=== PATIENT | female | born 1960 | race Caucasian/White ===

== ENCOUNTER 2020-07-31 11:46 | Emergency (ER) | payer SELFPAY ==
[2020-07-31 13:48] LABS: Absolute Lymphocytes (CBC) 0.5 K/uL (0.7-4.9); Basophils % 0.2 % (0-1.3); Hematocrit 43.8 % (36.0-45.0); Lymphocytes % 9.3 % (15.3-44.8); RBC Red Blood Cell Count 4.39 M/uL (3.86-4.86)
[2020-07-31] MEDS ORDERED: NA CHLORIDE 0.9% 1,000 ML ONE (13:51)
[2020-07-31 13:59] LABS: ALT/SGPT 52 U/L (12-78); AST/SGOT 29 U/L (15-37); Albumin 4.1 g/dL (3.4-5.0); Alkaline Phosphatase 64 U/L (45-117); BUN Blood Urea Nitrogen 21 mg/dL (7-18); Bicarbonate 20 mmol/L (21-32); Bilirubin Direct 0.5 mg/dL (0-0.2); Bilirubin Total 1.1 mg/dL (0.2-1.0); Glucose Level 131 mg/dL (74-106); Lipase 359 U/L (73-393); Potassium 3.5 mmol/L (3.5-5.1); Protein, Total 8.6 g/dL (6.4-8.2); Sodium Level 130 mmol/L (136-145)
[2020-07-31 15:03] LABS: SARS-COV-2 RT PCR NEGATIVE (NEGATIVE)
[2020-07-31] MEDS ORDERED: ONDANSETRON 4 MG/2 ML VIAL ONE (15:42)
--- NOTE | 2020-07-31 17:23 | EDPHYS ---
Physician Documentation [facility] Name: Susanne Vargas Age: 59 yrs Sex: Female : 1960 Arrival Date: 07/31/2020 Time: 11:51 Bed 17 Private MD: Lucila Arellano K ED Physician Elgin Agustin HPI: 07/31 13:15 This 59 yrs old Female presents to ER via Wheelchair with complaints of pm1 Vomiting, Nausea. 13:15 The patient presents to the emergency department with nausea, vomiting. Onset: The pm1 symptoms/episode began/occurred 8 day(s) ago. Possible causes: unknown. The symptoms are aggravated by nothing. The symptoms are alleviated by nothing. Associated signs and symptoms: Pertinent positives: Occasional abdominal cramping, Pertinent negatives: constipation, dysuria, fever. Severity of symptoms: in the emergency department the symptoms are unchanged Pain is currently a 0 / 10. The patient has been recently seen by a physician: the patient's primary care provider, Dr. Arellano. Patient saw her PCP for the same complaints and Dr. Arellano stopped her hyperlipidemia medications due to possible cause for nausea and vomiting. Historical: - Allergies: 12:21 No Known Allergies; ll1 - PMHx: 12:21 Hypertension; High Cholesterol; no meds now; ll1 - PSHx: 12:21 None; ll1 - Immunization history:: Flu vaccine is up to date. - Social history:: Smoking status: Patient denies any tobacco usage or history of. ROS: 13:15 Cardiovascular: Negative for chest pain, palpitations, and edema, Respiratory: Negative pm1 for shortness of breath, cough, wheezing, and pleuritic chest pain. 13:15 Back: Negative for injury and pain, : Negative for injury, bleeding, discharge, and swelling, MS/Extremity: Negative for injury and deformity, Skin: Negative for injury, rash, and discoloration, Neuro: Negative for headache, weakness, numbness, tingling, and seizure. 13:15 Constitutional: Positive for poor PO intake, Negative for body aches, chills, fever. 13:15 Abdomen/GI: Positive for nausea and vomiting, abdominal cramps, Negative for diarrhea, constipation. Exam: 13:15 Constitutional: This is a well developed, well nourished patient who is awake, alert, pm1 and in no acute distress. Head/Face: Normocephalic, atraumatic. 13:15 Back: No spinal tenderness. No costovertebral tenderness. Full range of motion. Skin: Warm, dry with normal turgor. Normal color with no rashes, no lesions, and no evidence of cellulitis. MS/ Extremity: Pulses equal, no cyanosis. Neurovascular intact. Full, normal range of motion. 13:15 Cardiovascular: Rate: tachycardic, actual rate is 113 bpm, Rhythm: regular, Pulses: no pulse deficits are appreciated, Heart sounds: normal. 13:15 Respiratory: Exam negative for acute changes, the patient does not display signs of respiratory distress, Respirations: normal, Breath sounds: are clear throughout. 13:15 Abdomen/GI: Inspection: abdomen appears normal, Bowel sounds: normal, Palpation: abdomen is soft and non-tender, in all quadrants. 13:15 Neuro: Orientation: is normal, Mentation: is normal, Motor: is normal, moves all fours, Sensation: is normal, no obvious gross deficits. Vital Signs: 12:17 BP 148 / 116; Pulse 130; Resp 18; Temp 97.7; Pulse Ox 100% ; Weight 45.36 kg; Height 5 ll1 ft. 3 in. (160.02 cm); Pain 1/10; 13:03 BP 163 / 122; Pulse 113; Resp 20; Temp 97.6(TE); Pulse Ox 100% on R/A; Pain 4/10; bw 13:35 BP 148 / 113 Supine; Pulse 106; mt 13:35 BP 154 / 126 Sitting; Pulse 120; mt 13:35 BP 138 / 114 Standing; Pulse 132; mt 14:03 BP 167 / 119; Pulse 102; Resp 20; Pulse Ox 100% on R/A; bw 16:25 BP 148 / 129; Pulse 90; Resp 20; Pulse Ox 100% on R/A; bw 17:22 BP 163 / 108; Pulse 95; Resp 18; Pulse Ox 100% on R/A; bw 12:17 Body Mass Index 17.71 (45.36 kg, 160.02 cm) ll1 MDM: 12:54 Patient medically screened. rn 15:37 Data reviewed: vital signs. Data interpreted: Pulse oximetry: on room air is 100 %. pm1 Interpretation: normal. 17:22 Counseling: I had a detailed discussion with the patient and/or guardian regarding: the pm1 historical points, exam findings, and any diagnostic results supporting the discharge/admit diagnosis, lab results, the need for outpatient follow up, to return to the emergency department if symptoms worsen or persist or if there are any questions or concerns that arise at home. 17:22 ED course: Patient able to eat in the ER without any vomiting. Therefore will discharge pm1 the patient home for follow up with PCP. 07/31 13:15 Order name: Basic Metabolic Panel; Complete Time: 15:02 pm1 07/31 13:15 Order name: CBC with Diff; Complete Time: 15:02 pm1 07/31 13:15 Order name: Hepatic Function; Complete Time: 15:02 pm1 07/31 13:15 Order name: Lipase; Complete Time: 15:02 pm1 07/31 13:15 Order name: IV Saline Lock; Complete Time: 13:25 pm1 07/31 13:15 Order name: Strep; Complete Time: 15:02 pm1 07/31 14:32 Order name: Throat Culture EDTX 07/31 15:03 Order name: COVID-19/FLU A+B; Complete Time: 15:18 EDTX 07/31 15:28 Order name: Glenn Screen Profile; Complete Time: 17:22 07/31 13:15 Order name: Labs collected and sent; Complete Time: 13:25 pm1 07/31 13:15 Order name: Orthostatics; Complete Time: 13:36 pm1 07/31 13:15 Order name: Droplet/Contact Precautions; Complete Time: 13:26 pm1 07/31 13:15 Order name: O2 Per Protocol; Complete Time: 13:25 pm1 Administered Medications: 14:02 Drug: NS 0.9% 1000 ml Route: IV; Rate: 1000 ml; Site: right antecubital; bw 17:45 Follow up: Response: No adverse reaction; IV Status: Completed infusion bw 15:27 Drug: Zofran (Ondansetron) 4 mg Route: IVP; Site: right antecubital; bw 17:45 Follow up: Response: No adverse reaction bw Disposition: 18:18 Co-signature as Attending Physician, Elgin Agustin MD. rn Disposition: 07/31/20 17:23 Discharged to Home. Impression: Nausea and vomiting. - Condition is Stable. - Discharge Instructions: Nausea and Vomiting, Adult. - Prescriptions for Zofran ODT 4 mg Oral tablet,disintegrating - place 1 tablet by TRANSLINGUAL route every 8 hours As needed; 12 tablet. - Medication Reconciliation Form, Thank You Letter, Antibiotic Education, Prescription Opioid Use form. - Follow up: Emergency Department; When: As needed; Reason: Worsening of condition. Follow up: Private Physician; When: 2 - 3 days; Reason: Recheck today's complaints, Continuance of care, Re-evaluation by your physician. - Problem is new. - Symptoms have improved. Signatures: Dispatcher [employer] EDTX Elgin Agustin MD MD rn Deshaun Mead, HOTEL MAINTENANCE ENGINEER HOTEL MAINTENANCE ENGINEER pm1 Pa Bennett RN RN ll1 Jacquie Grover RN RN bw Corrections: (The following items were deleted from the chart) 14:12 13:17 CORONAVIRUS+MR.LAB.BRZ ordered. [facility] 17:47 17:23 07/31/2020 17:23 Discharged to Home. Impression: Nausea and vomiting. Condition bw is Stable. Forms are Medication Reconciliation Form, Thank You Letter, Antibiotic Education, Prescription Opioid Use. Follow up: Emergency Department; When: As needed; Reason: Worsening of condition. Follow up: Private Physician; When: 2 - 3 days; Reason: Recheck today's complaints, Continuance of care, Re-evaluation by your physician. Problem is new. Symptoms have improved. pm1
--- NOTE | 2020-07-31 17:23 | ER ---
Nurse's Notes [facility] Name: Susanne Vargas Age: 59 yrs Sex: Female : 1960 Arrival Date: 07/31/2020 Time: 11:51 Bed 17 Private MD: Lucila Arellano K Diagnosis: Nausea and vomiting Presentation: 07/31 12:17 Chief complaint: Patient states: N/V for 8 days. No known fever. Stomach cramping at ll1 times. Coronavirus screen: Client denies travel out of the [place] in the last 14 days. At this time, the client does not indicate any symptoms associated with coronavirus-19. Ebola Screen: Patient denies travel to an Ebola-affected area in the 21 days before illness onset. Initial Sepsis Screen: Does the patient meet any 2 criteria? HR > 90 bpm. No. Patient's initial sepsis screen is negative. Does the patient have a suspected source of infection? Yes: Acute abdominal pain. Risk Assessment: Do you want to hurt yourself or someone else? Patient reports no desire to harm self or others. Onset of symptoms was July 24, 2020. 12:17 Method Of Arrival: Wheelchair ll1 12:17 Acuity: KATHARINA 2 ll1 Triage Assessment: 17:41 General: Appears in no apparent distress. Behavior is calm, cooperative, appropriate bw for age. GI: Reports nausea, vomiting. Historical: - Allergies: 12:21 No Known Allergies; ll1 - PMHx: 12:21 Hypertension; High Cholesterol; no meds now; ll1 - PSHx: 12:21 None; ll1 - Immunization history:: Flu vaccine is up to date. - Social history:: Smoking status: Patient denies any tobacco usage or history of. Screenin:03 Abuse screen: Denies threats or abuse. Nutritional screening: No deficits noted. bw Tuberculosis screening: No symptoms or risk factors identified. Fall Risk None identified. Assessment: 13:03 Pain: Complains of pain in abdomen. Neuro: No deficits noted. Cardiovascular: No bw deficits noted. Respiratory: No deficits noted. GI: Abdomen is flat, non-distended, Reports nausea, vomiting, since 8 days. Pt family reports patient has not taken any of her home medication in 8 days. Patient currently denies. : No deficits noted. No signs and/or symptoms were reported regarding the genitourinary system. EENT: No deficits noted. No signs and/or symptoms were reported regarding the EENT system. Derm: No deficits noted. No signs and/or symptoms reported regarding the dermatologic system. 14:03 Reassessment: Patient appears in no apparent distress at this time. Patient and/or bw family updated on plan of care and expected duration. Pain level reassessed. Patient is alert, oriented x 3, equal unlabored respirations, skin warm/dry/pink. 16:25 Reassessment: Patient appears in no apparent distress at this time. Patient and/or bw family updated on plan of care and expected duration. Pain level reassessed. Patient is alert, oriented x 3, equal unlabored respirations, skin warm/dry/pink. 17:22 Reassessment: Patient appears in no apparent distress at this time. Patient and/or bw family updated on plan of care and expected duration. Pain level reassessed. Patient is alert, oriented x 3, equal unlabored respirations, skin warm/dry/pink. 17:39 Reassessment: Patient appears in no apparent distress at this time. bw Vital Signs: 12:17 BP 148 / 116; Pulse 130; Resp 18; Temp 97.7; Pulse Ox 100% ; Weight 45.36 kg; Height 5 ll1 ft. 3 in. (160.02 cm); Pain 1/10; 13:03 BP 163 / 122; Pulse 113; Resp 20; Temp 97.6(TE); Pulse Ox 100% on R/A; Pain 4/10; bw 13:35 BP 148 / 113 Supine; Pulse 106; mt 13:35 BP 154 / 126 Sitting; Pulse 120; mt 13:35 BP 138 / 114 Standing; Pulse 132; mt 14:03 BP 167 / 119; Pulse 102; Resp 20; Pulse Ox 100% on R/A; bw 16:25 BP 148 / 129; Pulse 90; Resp 20; Pulse Ox 100% on R/A; bw 17:22 BP 163 / 108; Pulse 95; Resp 18; Pulse Ox 100% on R/A; bw 12:17 Body Mass Index 17.71 (45.36 kg, 160.02 cm) ll1 ED Course: 11:51 Patient arrived in ED. mr 11:51 Lucila Arellano MD is Private Physician. mr 12:20 Triage completed. ll1 12:21 Arm band placed on. ll1 12:49 Jacquie Grover, KELLY is Primary Nurse. bw 12:54 Elgin Agustin MD is Attending Physician. rn 13:02 Deshaun Mead NP is PHCP. pm1 13:03 Patient has correct armband on for positive identification. Call light in reach. Side bw rails up X 1. Pulse ox on. NIBP on. Warm blanket given. 13:03 No provider procedures requiring assistance completed. bw 13:25 Inserted saline lock: 20 gauge in right antecubital area, using aseptic technique. ut Blood collected. 13:55 COVID swab sent to lab. Flu and/or RSV swab sent to lab. Strep swab sent to lab. jp3 17:39 IV discontinued. bw Administered Medications: 14:02 Drug: NS 0.9% 1000 ml Route: IV; Rate: 1000 ml; Site: right antecubital; 17:45 Follow up: Response: No adverse reaction; IV Status: Completed infusion 15:27 Drug: Zofran (Ondansetron) 4 mg Route: IVP; Site: right antecubital; 17:45 Follow up: Response: No adverse reaction Outcome: 17:23 Discharge ordered by MD. pm1 17:39 Discharged to home ambulatory. 17:39 Condition: stable 17:39 Discharge instructions given to patient, family, Instructed on discharge instructions, follow up and referral plans. medication usage. 17:47 Patient left the ED. Signatures: Evelin Amor mr Elgin Agustin MD MD rn Marinas, Patrick, NP [employer] pm1 Lindsey Rutledge ut Jonas Su 3 Pa Bennett RN RN 1 Jacquie Grover RN RN
[2020-07-31 18:45] VITALS: O2SAT 100
[2020-07-31 18:47] VITALS: TEMP 97.6
[2020-07-31 18:53] VITALS: BP 163/108
== END 2020-07-31 17:47 | disposition home or self-care (01) ==
LOC: ER 11:46
DX: R11.2 Nausea with vomiting, unspecified (principal); I10 Essential (primary) hypertension; E78.00 Pure hypercholesterolemia, unspecified
CPT/HCPCS: 0240U; 36415; 80048; 80076; 83690; 85025; 86308; 87070; 87081; 96361; 96374; 99284; J2405; J7030